=== PATIENT | female | born 1935 | race Caucasian/White ===

== ENCOUNTER 2023-04-24 08:19 | Emergency (ER) | payer MEDICARE, OTHER ==
[2023-04-24 10:40] LABS: BASOPHILS ABSOLUTE AUTO 0.02 K/mm3 (0.01-0.08); BASOPHILS PERCENT AUTO 0.2 % (0.1-1.2); EOSINOPHILS ABSOLUTE AUTO 0.03 K/mm3 (0.04-0.36); EOSINOPHILS PERCENT AUTO 0.3 (0.7-5.8); HEMATOCRIT 30.8 % (34.1-44.9); HEMOGLOBIN 9.7 gm/dl (11.2-15.7); IMMATURE GRAN ABSOLUTE AUTO 0.04 K/mm3 (0.00-0.10); IMMATURE GRAN PERCENT AUTO 0.4 % (<=1.0); LYMPHOCYTES ABSOLUTE AUTO 0.71 K/mm3 (1.18-3.74); LYMPHOCYTES PERCENT AUTO 7.5 % (19.3-51.7); MEAN CORPUSCULAR HEMOGLOBIN 29.3 pg (25.6-32.2); MEAN CORPUSCULAR HGB CONC 31.5 g/dl (32.2-35.5); MEAN CORPUSCULAR VOLUME 93.1 fl (79.4-94.8); MEAN PLATELET VOLUME 10.5 fl (9.4-12.3); MONOCYTES ABSOLUTE AUTO 0.68 K/mm3 (0.24-0.36); MONOCYTES PERCENT AUTO 7.2 % (4.7-12.5); NEUTROPHILS ABSOLUTE AUTO 7.97 K/mm3 (1.56-6.13); NEUTROPHILS PERCENT AUTO 84.4 % (34.0-71.1); PLATELET COUNT,PLT 231 K/mm3 (182-369); RED BLOOD CELL COUNT 3.31 M/mm3 (3.98-5.22); WHITE BLOOD CELL COUNT,WBC 9.45 K/mm3 (3.98-10.04)
[2023-04-24 11:00] LABS: A/G RATIO 0.9 (1-2); ALBUMIN 2.5 g/dl (3.4-5.0); ANION GAP 12.4 (5-15); BILIRUBIN TOTAL 0.5 mg/dL (0.2-1.0); C-REACTIVE PROTEIN 3.2 mg/dL (<1.0); CREATININE 0.4 mg/dL (0.55-1.02); EST CRCL DRUG DOSING (CG) 74.93 mL/min; PROTEIN TOTAL,TP 5.4 g/dl (6.4-8.2)
[2023-04-24 11:03] LABS: POTASSIUM,K 2.4 mEq/L (3.5-5.1)
[2023-04-24 11:12] LABS: APPEARANCE,URINE TURBID (Clear); BILIRUBIN,URINE NEGATIVE (Negative); COLOR,URINE LIGHT YELLOW (Yellow); GLUCOSE,URINE NEGATIVE (Negative); KETONES,URINE 2+ (Negative); LEUKOCYTE ESTERASE,URINE 1+ (Negative); NITRITE,URINE POSITIVE (Negative); OCCULT BLOOD,URINE TRACE-INTACT (Negative); PH,URINE 8.5 (5.0-8.0); PROTEIN,URINE TRACE (Negative)
[2023-04-24] MEDS ORDERED: Potassium Chloride 20 MEQ Tab.ER PO ONE (11:14)
[2023-04-24 11:20] LABS: AMORPHOUS SEDIMENT,URINE MODERATE /hpf (NOT SEEN); BACTERIA,URINE MANY /hpf (FEW); MUCUS,URINE NOT SEEN /hpf (FEW)
[2023-04-24] MEDS: Potassium Chloride 10 MEQ in Premix Bag 1 BAG IV SCH ×4 (11:33→14:59)
[2023-04-24] MEDS ORDERED: Sulfamethoxazole/Trimethoprim 800-160 MG Tab PO ONE (12:43)
[2023-04-24] MEDS ORDERED: Nitrofurantoin Monohydrate/Macrocrystalline 100 MG Cap PO ONE (12:45)
== END 2023-04-24 16:15 | disposition home or self-care (01) ==
LOC: JD.ED 08:19
DX: N39.0 Urinary tract infection, site not specified (principal); R07.81 Pleurodynia; S00.532A Contusion of oral cavity, initial encounter; Z88.2 Allergy status to sulfonamides; W18.30XA Fall on same level, unspecified, initial encounter; Y92.002 Bathroom of unspecified non-institutional (private) residence as the place of occurrence of the external cause
CPT/HCPCS: 36415; 71045; 73502; 80053; 81001; 83690; 83735; 84484; 85025; 86140; 93005; 96365; 96366; 99284; A9270; J3480; 93010; 99283